=== PATIENT | female | born 1950 | race Caucasian/White ===

== ENCOUNTER → 2018-03-02 09:43 | Outpatient (CLI) | payer MEDICARE, OTHER, SELFPAY | PROVIDERS: Family Provider Family Medicine; PCP Family Medicine; Visit Provider Nurse Practitioner Women's Health | DX: Z12.31 Encounter for screening mammogram for malignant neoplasm of breast (principal); Z90.11 Acquired absence of right breast and nipple | CPT/HCPCS: 77061; 77067; G0279 ==

== ENCOUNTER 2018-05-05 05:39 | Day surgery (SDC) | payer MEDICARE, OTHER, SELFPAY ==
[2018-05-05] VITALS (12 sets, daily range): BP systolic 104–140; BP diastolic 55–82; PULSE 64–78; RESP 16; TEMP 36.6; O2SAT 97–100; BMI 24.7
--- NOTE | 2018-05-05 06:05 | SUR.PREOP ---
500cc normal saline enema given as ordered.
--- NOTE | 2018-05-05 06:16 | PCM.HP.STD ---
Problem List (1) Screening for intestinal cancer Status: Acute History of Present Illness Date of Admission: 05/05/18 The patient is a 67 year old F who presents for screening colonoscopy. She has no abdominal complaints. No bright red blood per rectum or melena. Her most recent colonoscopy was 10 years prior. She has no family history of colon cancer. She enjoys good health. Past Medical History Past Medical History (Chronic Problems): Chronic Problems (Last Reviewed 03/02/18 @ 08:23 by Viridiana Geronimo) History of breast cancer (Chronic) 2004 lumpectomy left. 2013 mastectomy right Medical History: Medical History (Last Reviewed 03/02/18 @ 08:23 by Viridiana Geronimo) History of blood clots Z86.718 History of breast cancer Z85.3 History of skin cancer Z85.828 Hyperlipidemia E78.5 IBS (irritable bowel syndrome) K58.9 Osteopenia M85.80 Allergies No Known Allergies Allergy (Verified 05/03/18 13:42) Home Medications: Ambulatory Orders Medication Instructions Recorded aspirin 81 mg chewable tablet 81 mg PO QDAY 03/02/18 calcium carbonate-vitamin D3 600 1 cap PO TID cap 03/02/18 mg (1,500 mg)-400 unit capsule multivitamin tablet 1 tab PO QAM 03/02/18 tamoxifen 20 mg tablet 20 mg PO QDAY 03/02/18 Surgical History: Surgical History (Last Reviewed 03/02/18 @ 08:23 by Viridiana Geronimo) H/O hernia repair Z98.890, Z87.19 H/O lumpectomy Z98.890 2004 H/O mastectomy Z90.10 2013 Smoking Status: Never smoker Review of Systems Constitutional: Denies: Anorexia HEENT: Denies: Difficulty Swallowing Cardiovascular: Denies: Chest Pain Respiratory: Denies: Cough Gastrointestinal: Denies: Abdominal Pain, Hematochezia, Melena Neurological: Denies: Balance problems Psychiatric: Denies: Anxiety Endocrine: Denies: Change in Body Habitus VTE Information - Inpt Only VTE Present on Admission: No Patient Problems: Active and Suspected Problems (Last Reviewed 03/02/18 @ 08:23 by Viridiana Geronimo) Screening for intestinal cancer (Acute) - Physical Exam General: Alert, Oriented x3, Cooperative, No apparent distress HEENT: Atraumatic Oral: Moist Mucosa Neck: Supple Lungs: Clear to auscultation Cardiovascular: Regular rate, Regular Rhythm Abdomen: Bowel Sounds Present, Soft, Non Tender Extremities: No Calf Tenderness Skin: No rashes Neurological: Cranial nerves II-XII grossly intact Psych/Mental Status: Normal Affect Vital Signs Temp Pulse Resp BP Pulse Ox 97.8 F 71 16 130/76 H 100 05/05/18 05:53 05/05/18 05:53 05/05/18 05:53 05/05/18 05:53 05/05/18 05:53 Oxygen Delivery Method Room Air Weight: 153 lb 10.595 oz Body Mass Index (BMI) 24.7 Assessment/Plan All Active Problems (Last Reviewed 03/02/18 @ 08:23 by Viridiana Geronimo) Screening for intestinal cancer (Acute) Plan for screening colonoscopy with possible biopsy or polypectomy is indicated. The patient is aware of the technique, benefits, risks and alternatives. She has had an opportunity to ask and have questions answered. We will proceed as noted. Christiano Alfred M.D., F.A.C.S.
--- NOTE | 2018-05-05 07:11 | OP.ENDO_ITS ---
Patient Name: Margaret Peter Procedure Date: 05/05/2018 6:10 AM Date of : 1950 Age: 67 Procedure: Colonoscopy Indications: Screening for colorectal malignant neoplasm Providers: Christiano Alfred MD Referring MD: Christiano Alfred MD Medicines: Midazolam 5 mg IV, Meperidine 100 mg IV Patient Profile: Last Colonoscopy: 10 years ago. Complications: No immediate complications. Procedure: Pre-Anesthesia Assessment: - Prior to the procedure, a History and Physical was performed, and patient medications and allergies were reviewed. The patient's tolerance of previous anesthesia was also reviewed. The risks and benefits of the procedure and the sedation options and risks were discussed with the patient. All questions were answered, and informed consent was obtained. Prior Anticoagulants: The patient has taken no previous anticoagulant or antiplatelet agents. ASA Grade Assessment: I - A normal, healthy patient. After reviewing the risks and benefits, the patient was deemed in satisfactory condition to undergo the procedure. After I obtained informed consent, the scope was passed under direct vision. Throughout the procedure, the patient's blood pressure, pulse, and oxygen saturations were monitored continuously. The colonoscope was introduced through the anus and advanced to the cecum, identified by appendiceal orifice and ileocecal valve. The colonoscopy was extremely difficult due to a tortuous colon. Successful completion of the procedure was aided by increasing the dose of sedation medication, changing the patient to a supine position and applying abdominal pressure. The patient tolerated the procedure well. The quality of the bowel preparation was good. The ileocecal valve was photographed. Moderate Sedation: Moderate (conscious) sedation was personally administered by the endoscopist. The following parameters were monitored: oxygen saturation, heart rate, blood pressure, and response to care. Total physician intraservice time was 20 minutes. Scope In: 6:35:19 AM Scope Withdrawal Time 0 hours 7 minutes 29 seconds Scope Out: 7:01:46 AM Total Procedure Duration Time 0 hours 26 minutes 27 seconds Findings: Hemorrhoids were found on perianal exam. The colon (entire examined portion) was significantly tortuous. The exam was otherwise without abnormality. Impression: - Hemorrhoids found on perianal exam. - Tortuous colon. - The examination was otherwise normal. - No specimens collected. Recommendation: - Discharge patient to home. - Resume previous diet. - Continue present medications. - Repeat colonoscopy in 10 years for screening purposes. Procedure Code(s): --- Professional --- 29513, Colonoscopy, flexible; diagnostic, including collection of specimen(s) by brushing or washing, when performed (separate procedure) 51082, 59, Moderate sedation services provided by the same physician or other qualified health manager career performing the diagnostic or therapeutic service that the sedation supports, requiring the presence of an independent trained observer to assist in the monitoring of the patient's level of consciousness and physiological status; initial 15 minutes of intraservice time, patient age 5 years or older Diagnosis Code(s): --- Professional --- Z12.11, Encounter for screening for malignant neoplasm of colon K64.9, Unspecified hemorrhoids Q43.8, Other specified congenital malformations of intestine CPT copyright 2017 [employer]. All rights reserved. The codes documented in this report are preliminary and upon clinical secretary review may be revised to meet current compliance requirements. Christiano Alfred MD 05/05/2018 7:11:01 AM This report has been signed electronically. Number of Addenda: 0 Note Initiated On: 05/05/2018 6:10 AM
== END 2018-05-05 07:57 | disposition home or self-care (01) ==
LOC: EN 05:39 → AC 05:40
PROVIDERS: Family Provider Family Medicine; PCP Family Medicine; Referring Provider Surgery; Visit Provider Surgery
PROC: 0DJD8ZZ Inspection of Lower Intestinal Tract, Via Natural or Artificial Opening Endoscopic (ICD-10-PCS; CPT 45378; principal; 2018-05-05 06:25)
DX: Z12.11 Encounter for screening for malignant neoplasm of colon (principal); K64.9 Unspecified hemorrhoids; Z86.718 Personal history of other venous thrombosis and embolism; Z85.3 Personal history of malignant neoplasm of breast; Z85.828 Personal history of other malignant neoplasm of skin; Z79.82 Long term (current) use of aspirin; Z79.899 Other long term (current) drug therapy
CPT/HCPCS: G0121; 99152; 99153; J7120

== ENCOUNTER → 2019-04-05 | Outpatient (CLI) | payer MEDICARE, OTHER, SELFPAY ==
[2019-04-05 09:27] VITALS: BMI 24.7
--- NOTE | 2019-04-05 10:07 | BI_ITS ---
MAMMOGRAPHY - UNILATERAL SCREENING: LEFT BREAST REASON FOR EXAM: Female, 68 years old. Routine annual screening examination (unilateral). PERTINENT HISTORY: Personal history of breast cancer. Prior left lumpectomy and radiation treatment. Prior right mastectomy. TECHNIQUE: Digital unilateral breast shelbi (3D mammographic acquisition) in the CC and MLO projections. 2-D mediolateral oblique (MLO) and craniocaudad (CC) views of both breasts were obtained. CAD: Full Field Digital Mammography with Computer Added Detection was performed. COMPARISON: Comparison is made with prior study March 02, 2018 and March 01, 2017. FINDINGS: Breast Composition: The breasts are heterogeneously dense, which may obscure small masses. There are no dominant masses or suspicious calcifications. A tissue clip marker is seen in the retroareolar region of the breast. Postoperative architectural distortion in the central retroareolar region of the breast. This is unchanged. No other significant abnormalities are identified. There has been no significant change since the prior study. BI/SCREEN MAMM (CAD) W/SHELBI UNI L IMPRESSION: Stable unilateral screening mammogram. Yearly follow-up mammogram recommended. (A) ASSESSMENT CATEGORY: BIRADS Category 2: Benign. A letter regarding these results will be sent to the patient by the facility within 30 days. Approximately 10% of breast cancers are not detected by mammography. A normal mammogram should not delay biopsy of a clinically suspicious abnormality. [id number] Electronically Signed: Sammy Membreno, at 11:11 EDT , Service support ,
== END | disposition home or self-care (01) ==
PROVIDERS: Family Provider Family Medicine; PCP Family Medicine; Referring Provider Nurse Practitioner Women's Health; Visit Provider Nurse Practitioner Women's Health
DX: Z12.31 Encounter for screening mammogram for malignant neoplasm of breast (principal); Z85.3 Personal history of malignant neoplasm of breast
CPT/HCPCS: 77061; 77063; 77067; G0279

== ENCOUNTER 2020-01-01 16:36 | Emergency (ER) | payer MEDICARE, OTHER, SELFPAY ==
[2019-04-05 09:27] VITALS: BMI 24.7
[2020-01-01 16:39] VITALS: BP 132/79; PULSE 74; RESP 17; TEMP 36.1; O2SAT 98; BMI 25.0
--- NOTE | 2020-01-01 17:05 | ED.VIS.GEN ---
History of Present Illness Chief Complaint: Lower Extremity Injury Detail of Chief Complaint: Possible DVT Informant: Patient Onset: Days Context: Gradual Onset Current Severity: Mild Maximum Severity: Moderate Narrative: Presents with redness and swelling to the distal right lower leg that she first noted Wednesday evening. She wore her support hose and elevate her leg. It does seem to be improved, however patient's PCP recommended she come in and get an ultrasound to rule out DVT. She does have a history of phlebitis and varicose veins. She has never had a deep clot previously. - Past Medical History (1) History of breast cancer Status: Chronic Comment: 2004 lumpectomy left. 2013 mastectomy right Past Medical History - Allergies and Home Meds Allergies/Adverse Reactions: Allergies No Known Allergies Allergy (Verified 01/01/20 16:37) Primary Care Physician: Tito Troy MD [Primary Care Provider] - Prior records reviewed: Yes Smoking Status: Never smoker Review of Systems General: Denies: Chills, Fever Eyes: Denies: Visual changes - bilaterally ENT: Denies: Bilateral ear pain Cardiovascular: Denies: Chest pain Respiratory: Denies: Dyspnea, Cough Gastrointestinal: Denies: Abdominal pain Musculoskeletal: Reports: Swelling, Extremity Pain Skin: Reports: Rash Neurological: Denies: Headache, Weakness, Parasthesia Hematologic: Denies: Easy bruising, Easy bleeding Allergy: Denies: Uticaria Physical Exam Vital Signs/Narrative: Vital Signs Temp Pulse Resp BP Pulse Ox 01/01/20 16:39 97.0 F L 74 17 132/79 H 98 Inital Vital Signs reviewed: Yes General: Well nourished, Well developed Head: Normocephalic ENT: Moist mucous membranes Neck: Supple Cardiovascular: Regular rate, Regular rhythm Respiratory: No distress, CTA bilaterally Abdomen: Soft, Nontender Extremities: - - Mild erythema in a bandlike pattern on the right lower leg. Mild edema noted. No focal tenderness. No open wounds or drainage. Strong distal pulses and good range of motion. Neurological: Alert, Oriented x3 Psychological: Normal affect Diagnostic/Tx/Re-eval Impressions Venous Duplex 01/01/20 17:21 IMPRESSION: No evidence of DVT of the right lower extremity. Electronically Signed: Rusty Pulido MD at 18:13 EDT , Service support , - Medical Decision Making Right lower extremity vascular study reveals no evidence of DVT. She does have some erythema to the skin but it is not consistent with cellulitis. She will be encouraged to continue wearing her compression hose and elevation. She is to follow with her PCP later this week if not improving. ED Disposition - Plan for ED Patient: Disposition: Home or Assisted Living Diagnosis: Edema Instructions: ED Peripheral Edema, Unilateral Referrals: Tito Troy MD [Primary Care Provider] - 3-5 Days if not improving
--- NOTE | 2020-01-01 17:21 | US_ITS ---
STUDY: VENOUS DOPPLER ULTRASOUND - RIGHT LOWER EXTREMITY REASON FOR EXAM: Female, 69 years old. T ANKLE AREA REDNESS AND SWELLING TECHNIQUE: Ultrasound evaluation of the deep vein system to include ceja-scale imaging and compression was performed. Ceja-scale imaging and Doppler sonographic evaluation, including duplex spectral analysis and qualitative color flow sonography, was performed. COMPARISON: None. FINDINGS: Common Femoral Vein: Normal compression, spontaneity and augmentation. Normal color Doppler. Common Femoral Vein/Greater Saphenous Junction: Normal compression. No internal echoes. Deep Femoral Vein: Not imaged Femoral Proximal: Normal compression. No internal echoes. Femoral Middle: Normal compression, spontaneity and augmentation. Normal color Doppler. Femoral Distal: Normal compression. No internal echoes. Popliteal Vein: Normal compression, spontaneity and augmentation. Normal color Doppler. Posterior Tibial Vein: Normal compression. No internal echoes. Peroneal Vein: Normal compression. No internal echoes. US/Venous Duplex Imag/Limited/Uni IMPRESSION: No evidence of DVT of the right lower extremity. Electronically Signed: Rusty Pulido MD at 18:13 EDT , Service support ,
== END 2020-01-01 18:38 | disposition home or self-care (01) ==
PROVIDERS: Emergency Provider Emergency Medicine; PCP Family Medicine
DX: R60.0 Localized edema (principal)
CPT/HCPCS: 93971; 99282

== ENCOUNTER → 2020-04-10 11:09 | Outpatient (CLI) | payer MEDICARE, OTHER, SELFPAY ==
[2020-04-10 10:17] VITALS: BMI 25.0
--- NOTE | 2020-04-10 11:10 | BI_ITS ---
MAMMOGRAPHY - UNILATERAL SCREENING: LEFT BREAST REASON FOR EXAM: Female, 69 years old. Routine annual screening examination (unilateral). PERTINENT HISTORY: Personal history of breast cancer. Prior right mastectomy. History of prior left lumpectomy with removal of the nipple. TECHNIQUE: Digital unilateral breast shelbi (3D mammographic acquisition) in the CC and MLO projections. 2-D mediolateral oblique (MLO) and craniocaudad (CC) views of both breasts were obtained. CAD: Full Field Digital Mammography with Computer Added Detection was performed. COMPARISON: Comparison is made with prior study dated 04/05/2019 and 03/02/2018. FINDINGS: Breast Composition: The breasts are heterogeneously dense, which may obscure small masses. There are no dominant masses or suspicious calcifications. A tissue clip marker is once again seen in the deep retroareolar region of the left breast. Postoperative architectural distortion secondary to prior excisional biopsy in the central retroareolar region of the breast. No other significant abnormalities are identified. There has been no significant change since the prior study. BI/SCREEN MAMM (CAD) W/SHELBI UNI L IMPRESSION: Stable unilateral screening mammogram. Yearly follow-up mammogram recommended. (A) ASSESSMENT CATEGORY: BIRADS Category 2: Benign. A letter regarding these results will be sent to the patient by the facility within 30 days. Approximately 10% of breast cancers are not detected by mammography. A normal mammogram should not delay biopsy of a clinically suspicious abnormality. [id number] Electronically Signed: Sammy Membreno, at 13:23 EDT , Service support ,
== END ==
PROVIDERS: PCP Family Medicine; Referring Provider Nurse Practitioner Women's Health; Visit Provider Nurse Practitioner Women's Health
DX: Z12.31 Encounter for screening mammogram for malignant neoplasm of breast (principal)
CPT/HCPCS: 77063; 77067

== ENCOUNTER → 2020-04-29 17:16 | Outpatient (CLI) | payer MEDICARE, OTHER, SELFPAY ==
[2020-04-29 14:14] VITALS: BMI 25.0
== END ==
PROVIDERS: PCP Family Medicine; Visit Provider Nurse Practitioner Women's Health
DX: R30.0 Dysuria (principal)
CPT/HCPCS: 87086; 87088

== ENCOUNTER → 2020-09-17 09:43 | Outpatient (CLI) | payer MEDICARE, OTHER, SELFPAY ==
[2020-05-06 11:31] VITALS: BMI 25.3
--- NOTE | 2020-09-17 09:45 | US_ITS ---
STUDY: RENAL ULTRASOUND - COMPLETE REASON FOR EXAM: Female, 69 years old. UTI TECHNIQUE: Ultrasound evaluation of the kidneys was performed with real-time and static serrano-scale imaging. COMPARISON: None. FINDINGS: RIGHT KIDNEY: Normal location of the right kidney, which is normal in size. The right kidney measures 10.3 cm x 4.5 cm x 3.6 cm. There is a normal cortex of the right kidney. The renal cortex measures 1.1 cm. There is no right renal mass or cyst. There are no right renal calculi. There is no right hydronephrosis. DISTAL RIGHT URETER: There is non-visualization of the distal right ureter. There is no demonstrated right ureterovesical junction calculus. There is a visualized right ureteral jet. LEFT KIDNEY: Normal location of the left kidney, which is normal in size. The left kidney measures 9.4 cm x 5.6 cm x 4.4 cm. There is a normal cortex of the left kidney. The renal cortex measures 1.9 cm. There is no left renal mass or cyst. There are no left renal calculi. There is no left hydronephrosis. DISTAL LEFT URETER: There is non-visualization of the distal left ureter. There is no demonstrated left ureterovesical junction calculus. There is a visualized left ureteral jet. BLADDER: The distended urinary bladder has a volume of 380 ml. The empty urinary bladder has a volume of 0 ml. There is a normal wall thickness of the distended urinary bladder. There is no demonstrated mass within the urinary bladder. There are no demonstrated bladder calculi. US/Kidney and Bladder IMPRESSION: Normal ultrasound of the kidneys and urinary bladder. Electronically Signed: Sammy Membreno MD at 10:59 EST , Service support ,
== END ==
PROVIDERS: PCP Family Medicine; Referring Provider Urology; Visit Provider Urology
DX: N39.0 Urinary tract infection, site not specified (principal)
CPT/HCPCS: 76770

== ENCOUNTER → 2021-04-22 10:13 | Outpatient (CLI) | payer MEDICARE, OTHER, SELFPAY ==
[2020-05-06 11:31] VITALS: BMI 25.3
--- NOTE | 2021-04-22 10:16 | BI_ITS ---
MAMMOGRAPHY - UNILATERAL SCREENING: LEFT BREAST REASON FOR EXAM: Female, 70 years old. Routine annual screening examination (unilateral). PERTINENT HISTORY: Non-contributory. TECHNIQUE: Digital examination. Mediolateral oblique (MLO) and craniocaudad (CC) views of the breast were obtained. CAD: CAD was performed on this study. COMPARISON: 04/10/2020 FINDINGS: Breast Composition: The breasts are heterogeneously dense, which may obscure small masses. There are no dominant masses or suspicious calcifications. No change in lumpectomy changes in the central left breast. BI/SCREEN MAMM (CAD) W/SHELBI UNI L IMPRESSION: Stable left screening mammogram. ASSESSMENT CATEGORY: BIRADS Category 2: Benign. A letter regarding these results will be sent to the patient by the facility within 30 days. FOLLOW UP RECOMMENDATION: Yearly follow up mammogram recommended. (A) [id number] Approximately 10% of breast cancers are not detected by mammography. A normal mammogram should not delay biopsy of a clinically suspicious abnormality. [id number] Electronically Signed: Chris Urias MD at 9:02 EDT Tel , Service support ,
== END ==
PROVIDERS: PCP Family Medicine; Referring Provider Nurse Practitioner Women's Health; Visit Provider Nurse Practitioner Women's Health
DX: Z12.31 Encounter for screening mammogram for malignant neoplasm of breast (principal)
CPT/HCPCS: 77063; 77067

== ENCOUNTER → 2022-04-27 | Outpatient (CLI) | payer MEDICARE, OTHER, SELFPAY ==
--- NOTE | 2022-04-27 09:43 | BI_ITS ---
MAMMOGRAPHY - UNILATERAL SCREENING: LEFT BREAST REASON FOR EXAM: Female, 71 years old. Routine annual screening examination (unilateral). PERTINENT HISTORY: Personal history of breast cancer. Prior right mastectomy. Prior left lumpectomy. TECHNIQUE: Digital unilateral breast shelbi (3D mammographic acquisition) in the CC and MLO projections. 2-D mediolateral oblique (MLO) and craniocaudad (CC) views of both breasts were obtained. CAD: Full Field Digital Mammography with Computer Added Detection was performed. COMPARISON: Comparison is made with prior study dated 04/22/2021 and 04/10/2020. FINDINGS: Breast Composition: The breasts are heterogeneously dense, which may obscure small masses. There are no dominant masses or suspicious calcifications. A tissue clip marker is once again seen in the deep retroareolar region of the left breast. Postoperative architectural distortion secondary to prior excisional biopsy is also seen in the central retroareolar region of the breast. No other significant abnormalities are identified. There has been no significant change since the prior study. BI/SCREEN MAMM (CAD) W/SHELBI UNI L IMPRESSION: Stable unilateral screening mammogram. Yearly follow-up mammogram recommended. (A) ASSESSMENT CATEGORY: BIRADS Category 2: Benign. A letter regarding these results will be sent to the patient by the facility within 30 days. Approximately 10% of breast cancers are not detected by mammography. A normal mammogram should not delay biopsy of a clinically suspicious abnormality. [id number] Electronically Signed: Sammy Membreno MD at 11:21 EDT ,
== END | disposition home or self-care (01) ==
LOC: OPBI 09:36
PROVIDERS: PCP Family Medicine; Visit Provider Nurse Practitioner Women's Health
DX: Z12.31 Encounter for screening mammogram for malignant neoplasm of breast (principal)
CPT/HCPCS: 77063; 77067

== ENCOUNTER → 2023-04-28 | Outpatient (CLI) | payer MEDICARE, OTHER, SELFPAY ==
--- NOTE | 2023-04-28 10:19 | BI_ITS ---
MAMMOGRAPHY - UNILATERAL SCREENING: LEFT BREAST REASON FOR EXAM: Female, 72 years old. Routine annual screening examination (unilateral). PERTINENT HISTORY: Personal history of breast cancer. Prior right mastectomy. Prior left lumpectomy and left nipple resection. TECHNIQUE: Digital unilateral breast shelbi (3D mammographic acquisition) in the CC and MLO projections. 2-D mediolateral oblique (MLO) and craniocaudad (CC) views of both breasts were obtained. CAD: Full Field Digital Mammography with Computer Added Detection was performed. COMPARISON: Comparison is made with prior study dated April 27, 2022 and April 22, 2021. FINDINGS: Breast Composition: The breasts are heterogeneously dense, which may obscure small masses. There are no dominant masses or suspicious calcifications. A tissue clip marker is once again seen in the deep retroareolar region of the left breast. Postoperative architectural distortion is seen in the retroareolar region of the left breast due to prior lumpectomy. No other significant abnormalities are identified. There has been no significant change since the prior study. BI/SCREEN MAMM (CAD) W/SHELBI UNI L IMPRESSION: Stable unilateral screening mammogram. Yearly follow-up mammogram recommended. (A) ASSESSMENT CATEGORY: BIRADS Category 2: Benign. A letter regarding these results will be sent to the patient by the facility within 30 days. Approximately 10% of breast cancers are not detected by mammography. A normal mammogram should not delay biopsy of a clinically suspicious abnormality. [id number] Electronically Signed: Sammy Membreno MD at 10:52 EDT ,
== END | disposition home or self-care (01) ==
LOC: OPBI 10:19
PROVIDERS: PCP Family Medicine; Referring Provider Nurse Practitioner Women's Health; Visit Provider Nurse Practitioner Women's Health
DX: Z12.31 Encounter for screening mammogram for malignant neoplasm of breast (principal)
CPT/HCPCS: 77063; 77067

== ENCOUNTER → 2024-05-01 | Outpatient (CLI) | payer MEDICARE, OTHER, SELFPAY ==
--- NOTE | 2024-05-01 10:09 | BI_ITS ---
MAMMOGRAPHY - UNILATERAL SCREENING: LEFT BREAST REASON FOR EXAM: Female, 73 years old. Routine annual screening examination (unilateral). PERTINENT HISTORY: Non-contributory. TECHNIQUE: Digital examination. Mediolateral oblique (MLO) and craniocaudad (CC) views of the breast were obtained. CAD: CAD was performed on this study. COMPARISON: 04/28/2023 FINDINGS: Breast Composition: The breasts are heterogeneously dense, which may obscure small masses. There are no dominant masses or suspicious calcifications. No other significant abnormalities are identified. No change in lumpectomy changes and scarring in the retroareolar left breast are BI/SCREEN MAMM (CAD) W/SHELBI UNI L IMPRESSION: Stable left screening mammogram. ASSESSMENT CATEGORY: BIRADS Category 2: Benign. A letter regarding these results will be sent to the patient by the facility within 30 days. FOLLOW UP RECOMMENDATION: Yearly follow up mammogram recommended. (A) [id number] Approximately 10% of breast cancers are not detected by mammography. A normal mammogram should not delay biopsy of a clinically suspicious abnormality. [id number] Electronically Signed: Chris Urias MD at 14:16 EDT ,
== END | disposition home or self-care (01) ==
LOC: OPBI 09:57
PROVIDERS: PCP Family Medicine; Referring Provider Nurse Practitioner Women's Health; Visit Provider Nurse Practitioner Women's Health
DX: Z12.31 Encounter for screening mammogram for malignant neoplasm of breast (principal); Z85.3 Personal history of malignant neoplasm of breast
CPT/HCPCS: 36415; 77063; 77067

== ENCOUNTER → 2025-05-02 | Outpatient (CLI) | payer MEDICARE, OTHER, SELFPAY ==
--- NOTE | 2025-05-02 10:45 | BI_ITS ---
EXAM: SCREEN MAMM (CAD) W/SHELBI UNI L DATE: 05/02/2025 CLINICAL HISTORY: F, Age 74 y/o , SCREEN FOR BREAST CANCER Personal history of breast cancer. Prior right mastectomy. Prior left lumpectomy and resection of the areola. TECHNIQUE: Procedure Code: [id number] Modality: MG Procedure: SCREEN MAMM (CAD) W/SHELBI UNI L COMPARISON: Prior exam(s) dated May 01, 2024.. FINDINGS: TISSUE DENSITY: The breasts are heterogeneously dense, which may obscure small masses. Bilateral Breast Mammographic Findings: No significant masses, calcifications or other abnormalities are identified. Once again, there is evidence of postoperative scarring in the retroareolar region of the left breast secondary to prior lumpectomy. No suspicious masses, areas of developing architectural distortion, or suspicious calcifications. There has been no significant interval change. BI/SCREEN MAMM (CAD) W/SHELBI UNI L IMPRESSION: Stable bilateral screening mammogram. OVERALL FINAL ASSESSMENT BI-RADS 2: BENIGN RECOMMENDATION: Routine annual follow-up in 1 Year Additional Recommendation none A letter with findings and recommendations will be mailed to the patient. Reading Location: [place] [address]
== END | disposition home or self-care (01) ==
LOC: OPBI 09:48
PROVIDERS: PCP Family Medicine; Referring Provider Nurse Practitioner Women's Health; Visit Provider Nurse Practitioner Women's Health
DX: Z12.31 Encounter for screening mammogram for malignant neoplasm of breast (principal)
CPT/HCPCS: 77063; 77067